=== PATIENT | female | born 1965 | race Caucasian/White ===

== ENCOUNTER 2017-01-05 13:26 | Emergency (ER) | payer OTHER ==
[2017-01-05 14:26] LABS: ABSOLUTE NEUTROPHIL COUNT 5.6 K/mm3 (1.8-7.7); BASO # 0.1 K/mm3 (0.0-0.2); BASO % 0.7 % (0.2-1.0); EOS # 0.2 (0.0-0.5); EOS % 1.9 % (0.9-2.9); HEMATOCRIT 40.1 % (37.0-47.0); HEMOGLOBIN 13.6 gm/l (12.0-16.0); IMM NEUT% 0.2 % (0-1); LYMPH % 23.3 % (15-45); MEAN CORPUSCULAR HEMOGLOBIN 31.2 pg (27.0-31.0); MEAN CORPUSCULAR HGB CONC 33.9 g/dl (33.0-37.0); MEAN PLATELET VOLUME 10.4 fl (7.4-10.4); MONO # 0.6 (0.0-0.8); MONO % 7.2 % (4-12); NEUT % 66.7 % (43-75); PLATELET COUNT 218 K/mm3 (130-400); RED CELL DISTRIBUTION WIDTH 11.9 % (11.5-14.5)
[2017-01-05 14:40] LABS: ALB/GLOB RATIO 1.6 (>1.0); ALBUMIN 4.1 gm/dL (3.5-5.7); CALCIUM 9.3 mg/dL (8.6-10.3)
--- NOTE | 2017-01-05 14:48 | RAD ---
History: Chest pain. Comparison: None. Technique: 2 views Findings: The soft tissue and bony structures are unremarkable. The heart size is appropriate. No infiltrate, effusion or pneumothorax is observed. The hilar and mediastinal structures are normal. Impression: 1. A negative 2 view chest
[2017-01-05 15:18] LABS: TROPONIN I < 0.01 ng/ml (0.0-0.06)
[2017-01-05 15:22] LABS: CKMB ISOENZYME 1.4 ng/ml (0.6-6.3)
== END 2017-01-05 18:11 | disposition home or self-care (01) ==
LOC: ED 13:26
DX: R07.9 Chest pain, unspecified (principal)